=== PATIENT | male | born 1970 | race African-American/Black ===

== ENCOUNTER 2016-10-15 15:51 | Emergency (ER) | payer OTHER ==
[~2016-10-15] VITALS: Ht 182.9 cm; Wt 103.5 kg
[2016-10-15 16:28] LABS: EOSINOPHIL (%) 0.2 % (0-5); HEMATOCRIT 39.8 % (38.0-50.0); IMMATURE GRANULOCYTE (%) 0.3 % (0.0-0.7); IMMATURE GRANULOCYTE COUNT 0.2 K/uL; LYMPHOCYTE COUNT 0.8 K/uL (1.0-2.8); MCH 27.4 PG (29.0-34.0); MCHC 34.2 G/DL (30.0-36.0); MCV 80.2 FL (86-99); MONOCYTE (%) 12.5 % (3-12); MONOCYTE COUNT 0.8 K/uL (0-0.8); NEUTROPHIL (%) 74.1 % (45-76); NEUTROPHIL COUNT 4.5 K/uL (1.8-6.4); PLATELET COUNT 200 K/uL (156-360); RBC DIS.WIDTH-CV 13.3 % (11.8-14.6); RBC DIS.WIDTH-SD 37.9 % (39-53); RED BLOOD COUNT 4.96 M/uL (4.00-5.50); WHITE BLOOD COUNT 6.1 K/uL (4.1-10.2)
[2016-10-15 16:38] LABS: CHLORIDE 104 mEq/L (99-109); POTASSIUM 3.8 mEq/L (3.7-5.4); SODIUM 136 mEq/L (136-147)
[2016-10-15 16:40] LABS: GLUCOSE 245 mg/dL (70-99)
[2016-10-15 16:42] LABS: ANION GAP 11 MEQ/L (2-14); TOTAL BILIRUBIN 0.4 mg/dL (0.0-1.0)
[2016-10-15 16:44] LABS: ALKALINE PHOSPHATASE 66 IU/L (3-129); GFR ESTIMATE (CALCULATED) > 59 mL/min/
[2016-10-15 16:45] LABS: UREA NITROGEN (BUN) 10 mg/dL (9-23)
[2016-10-15 16:47] LABS: LIPASE 15 U/L (1.0-51.0)
[2016-10-15 19:34] LABS: ADD MIUA? YES; BILIRUBIN NEGATIVE; BLOOD NEGATIVE; COLOR YELLOW ((YELLOW)); GLUCOSE (STRIP) >=500; KETONES 80; LEUKOCYTES NEGATIVE; NITRITE NEGATIVE; PROTEIN (STRIP) 30; SPECIFIC GRAVITY 1.041 (1.000-1.030); UROBILINOGEN 0.2 MG/DL (0.2-1.0)
[2016-10-15 20:16] LABS: BACTERIA NONE SEEN /HPF; EPITHELIAL CELLS NONE SEEN /HPF; GRANULAR CASTS 0-5 /LPF; MUCUS 3+ /LPF; RED BLOOD CELLS 0-5 /HPF (0-5); UCUL ADDED? NO; WHITE BLOOD CELLS 0-5 /HPF (0-5)
[2016-10-15 21:31] VITALS: BP 134/80
== END 2016-10-15 21:31 ==
LOC: EME 15:51
PROVIDERS: Emergency Medicine
DX: R10.9 Unspecified abdominal pain (principal); R50.9 Fever, unspecified; R42 Dizziness and giddiness; E11.65 Type 2 diabetes mellitus with hyperglycemia; Z79.4 Long term (current) use of insulin; Z87.442 Personal history of urinary calculi; Z87.891 Personal history of nicotine dependence
CPT/HCPCS: 74176; 80053; 81003; 83605; 83690; 85025; 99281; 99285; J1885; J3010; J7030

== ENCOUNTER 2017-09-06 12:24 | Emergency (ER) | payer OTHER ==
[~2017-09-06] VITALS: Ht 182.9 cm; Wt 106.7 kg
[2017-09-06] MEDS ORDERED: MOTRIN600 MG PO (14:51)
[2017-09-06] MEDS ORDERED: ZOFRAN4 MG PO (14:51)
[2017-09-06 15:48] VITALS: BP 156/102
== END 2017-09-06 15:49 ==
LOC: EME 12:24
DX: S06.0X9A Concussion with loss of consciousness of unspecified duration, initial encounter (principal); W22.03XA Walked into furniture, initial encounter; Y92.149 Unspecified place in prison as the place of occurrence of the external cause; E11.9 Type 2 diabetes mellitus without complications; Z87.891 Personal history of nicotine dependence
CPT/HCPCS: 70450; 99281; 99284